=== PATIENT | female | born 1970 | race Caucasian/White ===

== ENCOUNTER 2024-05-03 13:43 | Outpatient (CLI) | payer BC, SELFPAY ==
--- NOTE | ~2024-05-03 | US_ITS ---
EXAMINATION: US pelvic complete w TV INDICATION: Postmenopausal bleeding Comparison:No prior studies for comparison. TECHNIQUE: Multiple transabdominal and endovaginal sonographic images of the pelvis performed. FINDINGS: The uterus measures 6.25 x 4.4 x 3.1 cm. The endometrial complex measures 5 mm with heterog eneous appearance. The right ovary measures 1.4 x 1.5 x 1.2 cm and the left ovary measures 1.7 x 1.4 x 1.4 cm. There ar e small follicles in the left ovary. Normal doppler signal in both ovaries. There is no free fluid in the pelvis. There are no abnormal masses seen on either side. IMPRESSION: 1. Thickened endomtrial complex. The differential diagnosis includes endometrial hyperplasia, polyp a nd carcinoma. Biopsy is recommended. Reviewed, dictated and finalized at location B. IMPRESSION: 1. Thickened endomtrial complex. The differential diagnosis includes endometria l hyperplasia, polyp and carcinoma. Biopsy is recommended.
== END 2024-05-03 13:44 ==
LOC: GOSHIMG 13:44
PROVIDERS: PCP Nurse Practitioner Family; Visit Provider Nurse Practitioner Family
DX: N95.0 Postmenopausal bleeding (principal)
CPT/HCPCS: 76830; 76856

== ENCOUNTER 2024-05-29 07:13 | Outpatient (CLI) | payer BC, SELFPAY ==
[2024-05-29 08:22] LABS: Hematocrit 37.1 % (37.0-47.0); Hemoglobin 12.2 g/dL (12.0-15.0)
== END 2024-05-29 07:14 | disposition home or self-care (01) ==
LOC: ANHLAB 07:15
PROVIDERS: PCP Nurse Practitioner Family; Visit Provider Anesthesiology
DX: Z01.812 Encounter for preprocedural laboratory examination (principal); D64.9 Anemia, unspecified
CPT/HCPCS: 36415; 85014; 85018

== ENCOUNTER 2024-06-01 02:51 | Day surgery (SDC) | payer BC, SELFPAY ==
[2024-05-24 10:44] VITALS: BMI 32.7
--- NOTE | 2024-05-24 10:52 | PC.NURSE ---
Report to the Outpatient Waiting Room, entrance under the green pavilion located off [facility], at time _0630_ on date _[id number]_. Planned Procedure Time: _0830_.? Time changes happen often and if your time is changed the preop area will call you the afternoon before. - You and your visitor will be asked to self-screen and do not enter if you have any COVID symptoms. Please call surgeon if you need to reschedule. - A mask is optional within the hospital at this time. Patients may have clear liquids (water, carbonated beverages, clear teas, apple juice) until 3 hours prior to surgery with a maximum of 20 ounces. - No food from midnight until time of surgery and no smoking Take only the following medications with a SIP of water on the morning of surgery: __Levothyroxine and Metoprolol DO NOT STOP ANY OF YOUR OTHER PRESCRIPTION MEDICATIONS PRIOR TO SURGERY EXCEPT THE FOLLOWING Medications to discontinue per physician ____All vitamins and supplements. Date to take last bqrn___[id number] Please no make-up, nail tajik, hairspray, perfume, deodorant, or body powder the day of surgery.? No jewelry (including any body piercings) or valuables the day of surgery, leave them at home.? Please take a shower or bath the night before, or the morning of, surgery with an antibacterial soap.? Wear comfortable, loose fitting clothing.? - Jewelry must be removed prior to entering the operating room.? Rings and piercings that are not removed may be cut off. - The hospital will not accept responsibility for valuables.? - Please leave all valuables, including medications, at home the day of surgery. If you are going home after surgery, a licensed driver starting gate must drive you home.? - NO public transportation without another adult if you receive anesthesia. - We recommend that an adult stay with you for 24 hours following discharge. - We also recommend that you do not drive, make important decision, drink alcoholic beverages, or take any drugs that were not prescribed by your health care provider for at least 24 hours after your discharge time. Follow any additional instructions given to you from your surgeon. Telephone instructions given to __December___and asked if any additional questions and then verbalized understanding. Patient advised to call surgeon office or pre surgery nurse liaison [phone] if any additional questions.
[2024-06-01 07:25] VITALS: BP 107/51; PULSE 64; RESP 14; TEMP 36.6; O2SAT 99
[2024-06-01] MEDS: ACETAMINOPHEN 500 MG TABLET 1000 MG PO (07:25)
[2024-06-01] MEDS: LACTATED RINGERS 1,000 ML 30 ML IV CONT (07:25)
--- NOTE | 2024-06-01 07:36 | WPDHPUPDATE1 ---
History and Physical Update Update Date/Time: 06/01/24 07:36 History and Physical has been reviewed, including an updated exam of the patient. There are NO changes in the patient's condition. Risks, benefits, and alternatives have been discussed and questions answered. Patient agrees to proceed with procedure.
--- NOTE | 2024-06-01 07:47 | WPDANESEPPF ---
Anes - Initial Pre Proc Eval Procedure: Operation Date: 06/01/24 08:30 Proposed Procedures p Hysteroscopy, Dilation and Curettage with Removal of Any Endometrial Lesions if Necessary - Nathanael Butler MD Date/Time: 06/01/24 07:47 Surgeon: Nathanael Butler MD Pre Op Diagnosis: Post Menopausal Bleeding, Endometrial Polyp Patient Data Age: 53 Gender: F Height: 1.63 m Weight: 86.4 kg Allergies Allergy/AdvReac Type Severity Reaction Status Date / Time Penicillins Allergy Unknown Unknown Verified 05/24/24 10:39 Home Medications Medication Instructions Recorded Confirmed Type mecobalamin (vitamin B12) 1,000 1,000 mcg PO DAILY 02/09/23 05/24/24 History mcg chewable tablet metoprolol tartrate 25 mg tablet 25 mg PO BID 02/09/23 05/24/24 History gyrcbtyn-evfhwgbe-ggqf 45 mg-folic 1 cap PO DAILY 02/09/23 05/24/24 History acid 800 mcg-vit K 120 mcg capsule (Bariatric Multivitamins) Amberen 1 cap PO DAILY 05/24/24 05/24/24 History calcium carbonate 500 mg-vitamin 1 tablet PO DAILY 05/24/24 05/24/24 History D3 3.125 mcg (125 unit) tablet levothyroxine 100 mcg tablet 100 mcg PO DAILY 05/24/24 05/24/24 History Patient hx anesthesia problems: none Family hx anesthesia problems: none Results Review: All pre-operative results and documents have been reviewed as part of the pre-operative evaluation. [facility] Past Medical History Medical History Allergies Anxiety Depression Elective History of genital warts 1989 Hypothyroid Premature ventricular contraction Surgical History Surgical History H/O gastric bypass History of section S/P conization of cervix [place] teeth extracted Family History Family History Other Asthma Depression Diabetes mellitus Heart disease History of cancer Hypertension Thyroid disorder Social History Social History Smoking status: Never smoker Smoking end date: 01/01/95 Alcohol intake: current Substance use: never Substance use type: does not use Lack of Transportation: No Lack of Food: Never True Current Housing: I Have Housing Concerned About Future Housing: No Difficulty Paying Gas/Electric Bills: No Difficulty Paying for Meds: No Currently Unemployed: No Education: Associate Degree Difficulty w/ Childcare or Family Care: No Living arrangements: with family Gender identity (if verbalized by the patient): Female Spiritual care concerns: No Anes - Eval Final PreProcedure Day of Procedure 06/01/24 07:47 Patient weight: obese Heart: regular rate and rhythm Lungs: clear to auscultation Airway: Mallampati scale class II Neurological: alert and oriented Last oral intake: >/= 8 hours ASA classification: III Emergent: no Anesthetic plan: proceed Anesthesia type and monitoring: general GIVS and standard monitoring Results Review: All pre-operative results and documents have been reviewed as part of the pre-operative evaluation. Informed Consent: The patient's anesthetic plan and its attendant risks and benefits were discussed with the patient/family/POA. Questions were solicited and answers provided to the satisfaction of the patient/family/POA.
[2024-06-01] MEDS: LIDOCAINE HCL 1% LOCAL INJ 20 ML VIAL 10 ML INFILTRATE (08:35)
[2024-06-01] MEDS: ceFAZolin SODIUM 1 GM VIAL 2 GM IV PUSH (08:37)
--- NOTE | 2024-06-01 08:51 | W.PM.PROC2 ---
Procedure Note - Detailed Date of Procedure 06/01/24 Pre-op Diagnosis Post Menopausal Bleeding, Endometrial Polyp Post-op Diagnosis Same Procedure Performed Hysteroscopy with dilation and curettage and removal of endometrial polyp Surgeon Nathanael Butler MD Anesthesia MAC and Local Indications Postmenopausal bleeding and endometrial polyp on endometrial biopsy Findings uterus sound to 6 cm there was a polyp attached to the posterior lower uterine wall of the cavity this was removed completely the rest of the cavity was atrophic appearing Description of Procedure After informed consent was obtained patient was taken to the operating room and adequate IV sedation was administered. Attention was turned to the vagina. Speculum was inserted. Single-tooth tenaculum placed on the anterior lip of the cervix. 10 cc of 1% lidocaine was injected at the cervical vaginal interface at the 2 8 and 10 position. The uterus was sounded to 6 cm. The cervix was dilated to an 4 Rodriguez dilator. The rest of the dilation was hydrodilation. The hysteroscope was inserted into the cavity. The findings were The polyp. The AVeta instrument was inserted and the polyp was removed completely. A curettage was performed with minimal tissue. The hysteroscope was removed. Single-tooth tenaculum was removed hemostasis was noted at the tenaculum site with application of pressure and silver nitrate. Sponge count correct. The patient taken to recovery in stable condition. Estimated Blood Loss 5 Drains No Packing No Pathology Yes ( Endometrial shavings and curettings) Complications No immediate complications Condition Stable Disposition Same day [facility] Billing Surgery - Charge Forward: Surgery Billing
[2024-06-01 08:52] VITALS: BP 116/75; PULSE 74; RESP 14; O2SAT 96
[2024-06-01] MEDS: oxyCODONE HCL (*CRX) 5 MG TAB IR PO (09:09)
[2024-06-01 09:15] VITALS: BP 94/57; PULSE 45; RESP 20
[2024-06-01] MEDS: ONDANSETRON INJ 4 MG/2 ML VIAL IV PUSH (09:22)
[2024-06-01 09:45] VITALS: BP 100/56; PULSE 52; RESP 20
[2024-06-01 10:15] VITALS: BP 120/68; PULSE 50; RESP 20
== END 2024-06-01 10:20 | disposition home or self-care (01) ==
PROVIDERS: PCP Physician Assistant; Visit Provider Obstetrics & Gynecology
PROC: 0U5B8ZZ Destruction of Endometrium, Via Natural or Artificial Opening Endoscopic (ICD-10-PCS; CPT 58563; principal; 2024-06-01 08:30)
DX: N84.0 Polyp of corpus uteri (principal); N95.0 Postmenopausal bleeding; E03.9 Hypothyroidism, unspecified; F41.8 Other specified anxiety disorders; Z98.84 Bariatric surgery status
CPT/HCPCS: 58558; 88305; A9270; J0690; J1100; J2250; J2405; J2704; J3010; J7120